=== PATIENT | female | born 1960 | race Caucasian/White ===

== ENCOUNTER 2016-04-26 09:20 | Observation (INO) | payer MEDICARE ==
[2016-04-26] MEDS ORDERED: NS 1,000 ML IV ONE (09:34)
[2016-04-26] MEDS ORDERED: ONDANSETRON HCL 4 MG/2 ML VIAL IV ONE (09:49)
[2016-04-26 10:03] LABS: AUTOMATED EOSINOPHIL 5.3 % (0-5); AUTOMATED LYMPH 34.1 % (17-44); AUTOMATED MONOCYTE 11.2 % (3-10); AUTOMATED NEUTROPHIL 48.4 % (45-76); MPV 8.3 fL (7.4-10.4)
[2016-04-26 10:16] LABS: BLOOD UREA NITROGEN 9 MG/DL (7-17); CALCIUM 8.9 MG/DL (8.4-10.2); CALCULATED OSMOLALITY 266 MOs/Kg (270-290); CHLORIDE 92 mEq/L (98-107); GLUCOSE 70 MG/DL (70-99); PARTIAL THROMB. TIME 23.1 SEC (22-35); SODIUM LEVEL 140 mEq/L (137-146); TOTAL PROTEIN 6.8 G/DL (6.3-8.2)
--- NOTE | 2016-04-26 10:53 | EDPRACDOC ---
- General Chief Complaint: Generalized Weakness Stated Complaint: CHEST PAIN, LT SIDE NUMBNESS Time Seen by Provider: 04/26/16 09:30 Information Source: Patient Mode of Arrival:: Car Allergies/Adverse Reactions: Allergies Allergy/AdvReac Type Severity Reaction Status Date / Time codeine Allergy Hives* Verified 04/26/16 10:30 hydrocodone Allergy Hives* Verified 04/26/16 10:30 Penicillins Allergy See Verified 04/26/16 10:30 Comments piperacillin sodium Allergy Hives* Verified 04/26/16 10:30 [From Zosyn] tazobactam sodium Allergy Hives* Verified 04/26/16 10:30 [From Zosyn] ANTIBIOTIC STARTS WITH V Allergy See Uncoded 04/26/16 10:30 Comments Home Medications: Ambulatory Orders Alprazolam 1 mg PO TID 01/28/13 Carisoprodol [Soma] 350 mg PO QID 01/28/13 Furosemide [Lasix] 40 mg PO DAILY 01/28/13 Gabapentin 800 mg PO QID 01/28/13 Levothyroxine [Synthroid, Levoxyl] 75 mcg PO DAILY 01/28/13 Sertraline HCl [Zoloft] 100 mg PO DAILY 01/28/13 Bupropion HCl [Wellbutrin Xl] 300 mg PO DAILY 02/02/16 Omeprazole [Prilosec] 40 mg PO DAILY 02/02/16 Famotidine [Pepcid] 20 mg PO HS PRN 02/03/16 PEG-Electrolytes (Miralax) [Miralax] 17 gm PO .EVERY OTHER DAY 02/03/16 Atorvastatin Calcium [Lipitor] 20 mg PO HS 03/23/16 Meloxicam 15 mg PO DAILY 03/23/16 Cyanocobalamin (Vitamin B-12) [Vitamin B-12 (cyanocobalamin)] 1,000 mcg SL DAILY 04/26/16 Ergocalciferol (Vitamin D2) [Vitamin D] 400 unit PO DAILY 04/26/16 - History of Present Illness Exact Onset of Symptoms: Known Onset: 1 week Symptoms Started: Reports: Suddenly Symptoms: Reports: Difficulty walking, Slurred speech, Other trouble talking Symptoms Description: Constant Symptom Severity: Reports: Unable to performs ADL's Weakness: Left: Leg Other History: PT SAID THAT SHE'S NOTICED SOME LEFT LEG WEAKNESS FOR THE PAST WEEK. SHE HAS HAD DIFFICULTY SPEAKING WELL. THE PT SAID THAT SHE FINALLY WENT TO SEE HER DR TODAY WHO TOLD HER TO COME TO THE ED. THE PT SAID THAT SHE'S BEEN TRIPPING AND FALLING DUE TO THE LEFT LEG WEAKNESS AND THAT THE WEAKNESS IS GETTING WORSE. PT DID TAKE A 325 MG ASA THIS ED Past Medical History - Patient Medical History Respiratory History: Reports: Pneumonia GI/ History: Reports: Gastroesophageal Reflux, Diverticulosis Musculoskeletal History: Reports: Rheumatoid Arthritis Psychological History: Reports: Depression, Anxiety (SEVERE) Systemic History: Reports: Hypothyroidism. Denies: Cancer Surgical History: Reports: Hysterectomy, Tonsillectomy/Adnoidectomy, Other ( LEFT KNEE) - Family Medical History Reports: Cancer (sisters - breast ca), Cardiac Disorders (mother [place], brother, sisters). Denies: Hypertension, Diabetes, Stroke - Social Medical History Smoking Status: Former smoker ETOH: None Substance Abuse: None Lives In: Home EDM Review of Systems - Review of Systems ROS Negative Except as Marked: Yes All systems reviewed and were negative except as marked Neurological: Gait Difficulty, Speech Difficulty - Physical Exam Constitutional: Alert (Awake), No apparent distress Oriented to: Time, Person, Place Last recorded Vital Signs: Last Vital Signs Temp 98.6 F 04/26/16 09:25 Pulse 71 04/26/16 10:22 Resp 18 04/26/16 10:22 BP 117/62 04/26/16 10:22 Pulse Ox 94 04/26/16 10:22 Oxygen Pulse Oxygen Saturation 94 O2 Device Oxygen Flow Rate Fraction of Inspired Oxygen ( FIO2) - HEENT Head: Normal ( normocephalic) Eye Exam: Normal (PERRL, EOMI, Sclera white) Oropharynx: Normal (Pharynx:Moist without exudate,Gums-no swelling) ENT EAC: Normal TMJ: Normal Nose: No Symptoms Reported (septum midline) Neck: Normal (FROM, trachea at midline) - Respiratory/Cardiovascular Respiratory: Normal - CTA (BBS clear to auscultation without adventitious sounds ) Cardiovascular: Normal (RRR without murmur, gallop or rub) - GI Auscultation: Normal (NABS) Palpation: Normal (Soft,No rebound or guarding, non distended) Tenderness: Non tender Nicole's Sign: Negative - Musculoskeletal Back: Normal (Non-Tender) Extremities: Normal (Normal tone, Pulses 2+ No cyanosis or edema, FROM) - Integumentary Skin: Normal, Warm, Dry Lymphatics: Normal (no adenopathy) - Neurologic Memory Impaired: Normal Motor Function: Abnormal, Other (LEFT LEG WEAKNESS) Cranial Nerve: Normal (CN II-X11 intact sensation, strength 5/5) Cerebellar: Normal Mood Description: Normal Perception: Normal - Results 04/26/16 09:45 04/26/16 09:45 WBC 3.1 xk/uL (3.8-10.8) L 04/26/16 09:45 RBC 4.37 xM/uL (4.20-5.40) 04/26/16 09:45 Hgb 13.8 g/dL (12.0-16.0) 04/26/16 09:45 Hct 40.7 % (36-47) 04/26/16 09:45 MCV 93 fL (81-99) 04/26/16 09:45 MCH 31.6 pg (27-32) 04/26/16 09:45 MCHC 33.8 g/dl (33-36) 04/26/16 09:45 RDW 13.3 % (11.5-14.5) 04/26/16 09:45 Plt Count 187 xk/uL (130-400) 04/26/16 09:45 MPV 8.3 fL (7.4-10.4) 04/26/16 09:45 Neut % (Auto) 48.4 % (45-76) 04/26/16 09:45 Lymph % (Auto) 34.1 % (17-44) 04/26/16 09:45 Polk % (Auto) 11.2 % (3-10) H 04/26/16 09:45 Eos % (Auto) 5.3 % (0-5) H 04/26/16 09:45 Baso % (Auto) 1.0 % (0-2) 04/26/16 09:45 Absolute Neuts (auto) 1.49 xk/uL (1.7-8.2) L 04/26/16 09:45 Absolute Lymphs (auto) 1.05 xk/uL (0.65-4.75) 04/26/16 09:45 PT 10.0 SEC (9.2-11.2) 04/26/16 09:45 INR 1.0 04/26/16 09:45 APTT 23.1 SEC (22-35) 04/26/16 09:45 Sodium 140 mEq/L (137-146) 04/26/16 09:45 Potassium 3.2 mEq/L (3.5-5.1) L 04/26/16 09:45 Chloride 92 mEq/L (98-107) L 04/26/16 09:45 Carbon Dioxide 38 mMOL/L (22-33) H 04/26/16 09:45 Anion Gap 13 mEq/L (8-16) 04/26/16 09:45 BUN 9 MG/DL (7-17) 04/26/16 09:45 Creatinine 0.90 MG/DL (0.52-1.04) 04/26/16 09:45 Estimated GFR (MDRD) > 60 mL/min (>=60) 04/26/16 09:45 Glucose 70 MG/DL (70-99) 04/26/16 09:45 Calculated Osmolality 266 MOs/Kg (270-290) L 04/26/16 09:45 Calcium 8.9 MG/DL (8.4-10.2) 04/26/16 09:45 Corrected Calcium 9.0 MG/DL (8.4-10.2) 04/26/16 09:45 Total Bilirubin 0.5 MG/DL (0.2-1.3) 04/26/16 09:45 AST 33 IU/L (14-36) 04/26/16 09:45 ALT 31 IU/L (9-52) 04/26/16 09:45 Alkaline Phosphatase 107 IU/L (38-126) 04/26/16 09:45 Troponin I < 0.01 ng/mL (<.04) 04/26/16 09:45 Total Protein 6.8 G/DL (6.3-8.2) 04/26/16 09:45 Albumin 3.9 G/DL (3.5-5.0) 04/26/16 09:45 Lab Results 04/26/16 04/26/16 04/26/16 09:45 09:45 09:45 WBC 3.1 L RBC 4.37 Hgb 13.8 Hct 40.7 MCV 93 MCH 31.6 MCHC 33.8 RDW 13.3 Plt Count 187 MPV 8.3 Neut % (Auto) 48.4 Lymph % (Auto) 34.1 Polk % (Auto) 11.2 H Eos % (Auto) 5.3 H Baso % (Auto) 1.0 Absolute Neuts (auto) 1.49 L Absolute Lymphs (auto) 1.05 PT 10.0 INR 1.0 APTT 23.1 Sodium 140 Potassium 3.2 L Chloride 92 L Carbon Dioxide 38 H Anion Gap 13 BUN 9 Creatinine 0.90 Estimated GFR (MDRD) > 60 Glucose 70 Calculated Osmolality 266 L Calcium 8.9 Corrected Calcium 9.0 Total Bilirubin 0.5 AST 33 ALT 31 Alkaline Phosphatase 107 Troponin I < 0.01 Total Protein 6.8 Albumin 3.9 - EKG EKG #1 EKG Time: 09:33 -: Yes EKG interpreted by me Rate: bpm: 77 Caldwell: Normal Rhythm: NSR Block: None Hypertrophy: None ST: Normal Comparison: 03/27/16 - Diagnostic Imaging Chest Image interpreted by: Radiologist - Departure Yes I personally saw and evaluated the patient. Condition: Fair Final Diagnosis: CVA (cerebral vascular accident) Instructions: Weakness (General) Education/Counseling Given To: Patient Education/Counseling Given Regarding: Diagnosis, Treatment Referrals: Sonali Senior MD [Primary Care Provider] - One Week Decision to Admit Time: 13:10 Decision to admit date: 04/26/16 Decision to admit: from ED - Physician Consulted Hospitalist Provider Called: Karli Payan
[2016-04-26] MEDS ORDERED: PROMETHAZINE 25 MG/ML VIAL IV ONE (11:15)
[2016-04-26] MEDS ORDERED: PROMETHAZINE 25 MG/ML VIAL ONE (11:17)
[2016-04-26 12:06] LABS: AMORPHOUS OCC; RBC/URINE 0-2 (0-5); WBC/URINE 0-2 (0-5)
[2016-04-26 12:07] LABS: LEUKOCYTES/URINE NEG (NEGATIVE); NITRITE/URINE NEG (NEGATIVE); URINE OCCULT BLOOD NEG (NEG/TRACE)
[2016-04-26 12:18] LABS: FREE T3 4.87 pg/mL (2.77-5.27); FREE T4 1.32 ng/dL (0.78-2.19)
[2016-04-26 12:32] LABS: hTSH 2.7 uIU/mL (0.5-4.67)
[2016-04-26] MEDS ORDERED: ONDANSETRON HCL 4 MG/2 ML VIAL IV PRN (14:14)
--- NOTE | 2016-04-26 14:14 | DIRPT ---
CLINICAL DATA: CVA. Nausea with left-sided numbness today. EXAM: PORTABLE CHEST 1 VIEW COMPARISON: Radiographs 10/25/2011. CT 01/28/2012. FINDINGS: 1014 hours. There are lower lung volumes with poor definition of the pulmonary vasculature and patchy gjmy-fvctumk-yfck-right lower lobe airspace opacities. There is no significant pleural effusion or pneumothorax. The heart size and mediastinal contours are stable. The bones appear unremarkable. IMPRESSION: Patchy uqyn-snsqqsc-vesa-right lower lobe opacities are associated with lower lung volumes and may reflect atelectasis, although are worrisome for possible aspiration. Radiographic follow up recommended. Electronically Signed By: Yannick Lou M.D. On: 04/26/2016 14:11
--- NOTE | 2016-04-26 14:14 | DIRPT ---
CLINICAL DATA: Left-sided weakness. Left-sided weakness for 1 week. EXAM: CT HEAD WITHOUT CONTRAST TECHNIQUE: Contiguous axial images were obtained from the base of the skull through the vertex without intravenous contrast. COMPARISON: Head CT dated 12/21/2009. FINDINGS: There is mild generalized brain atrophy with commensurate dilatation of the ventricles and sulci. Ventricles are stable in size and configuration. There is no mass, hemorrhage, edema or other evidence of acute parenchymal abnormality. No extra-axial hemorrhage. No osseous abnormality. Visualized upper paranasal sinuses are clear. Mastoid air cells are clear. Superficial soft tissues are unremarkable. IMPRESSION: No evidence of acute intracranial abnormality. No intracranial mass, hemorrhage or edema. Electronically Signed By: Sarbjit Peña M.D. On: 04/26/2016 14:11
--- NOTE | 2016-04-26 14:20 | HISTPHYS ---
- Chief Complaint Slurred speech, left leg weakness - History of Present Illness This is a 55-year-old female who was sent to the emergency department this morning from her primary care physician's office, where she went complaining of 1 week of left leg weakness resulting in stumbling. Here in the emergency department, she was found to have significant left-sided lower extremity weakness, and slurred speech. Upon my examination of the patient, she is quite sleepy and her speech is certainly slurred although she did recently get a dose of Phenergan so this could be confounding things. Patient tells me that she 1st noticed weakness in her left leg about a week ago, when she was stumbling and had trouble lifting the leg entirely when she was walking. She does not think that she has any upper extremity weakness, she says that her speech is not some completely normal, part of the problem was that she wears dentures and they are loose. She denies any chest pain, fevers, chills, nausea, vomiting, weight gain or loss, changes in bowel habits, rashes on the skin or sick contacts. - Medical History Respiratory History: Reports: Pneumonia GI/ History: Reports: Gastroesophageal Reflux, Diverticulosis Musculoskeletal History: Reports: Rheumatoid Arthritis Systemic History: Reports: Hypothyroidism. Denies: Cancer Psychological History: Reports: Depression, Anxiety (SEVERE) - Surgical History Reports: Hysterectomy, Tonsillectomy/Adnoidectomy, Other (LEFT KNEE) - Medictions/Allergies Allergies codeine Allergy (Verified 04/26/16 10:30) Hives* MAKES ME FEEL WEIRD hydrocodone Allergy (Verified 04/26/16 10:30) Hives* Penicillins Allergy (Verified 04/26/16 10:30) See Comments PER MD OFFICE RECORD, PT UNSURE piperacillin sodium [From Zosyn] Allergy (Verified 04/26/16 10:30) Hives* PER MD OFFICE RECORDS, PT UNSURE OF NAME OF ANTIBIOTIC tazobactam sodium [From Zosyn] Allergy (Verified 04/26/16 10:30) Hives* PER MD OFFICE RECORDS, PT UNSURE OF NAME OF ANTIBIOTIC ANTIBIOTIC STARTS WITH V Allergy (Uncoded 04/26/16 10:30) See Comments FELT LIKE BEES STINGING ME ALL OVER Home Medications Alprazolam 1 mg PO TID 01/28/13 Carisoprodol [Soma] 350 mg PO QID 01/28/13 Furosemide [Lasix] 40 mg PO DAILY 01/28/13 Gabapentin 800 mg PO QID 01/28/13 Levothyroxine [Synthroid, Levoxyl] 75 mcg PO DAILY 01/28/13 Sertraline HCl [Zoloft] 100 mg PO DAILY 01/28/13 Bupropion HCl [Wellbutrin Xl] 300 mg PO DAILY 02/02/16 Omeprazole [Prilosec] 40 mg PO DAILY 02/02/16 Famotidine [Pepcid] 20 mg PO HS PRN 02/03/16 PEG-Electrolytes (Miralax) [Miralax] 17 gm PO .EVERY OTHER DAY 02/03/16 Atorvastatin Calcium [Lipitor] 20 mg PO HS 03/23/16 Meloxicam 15 mg PO DAILY 03/23/16 Cyanocobalamin (Vitamin B-12) [Vitamin B-12 (cyanocobalamin)] 1,000 mcg SL DAILY 04/26/16 Ergocalciferol (Vitamin D2) [Vitamin D] 400 unit PO DAILY 04/26/16 - Family History Reports: Cancer (sisters - breast ca), Cardiac Disorders (mother [place], brother, sisters). Denies: Hypertension, Diabetes, Stroke - Social History Smoking Status: Former smoker - Review of Systems Yes All systems reviewed and were negative except as marked (And as mentioned in the history of present illness above.) - Physical Exam Vital Signs: Initial Vitals Temperature 98.6 F 04/26/16 09:25 Pulse Rate 74 04/26/16 09:25 Respiratory Rate 18 04/26/16 09:25 Blood Pressure 109/57 L 04/26/16 09:25 Pulse Oxygen Saturation 95 04/26/16 09:25 Constitutional: Somnolent Oriented to: Time, Person, Place Exam: Answer questions appropriately, but sort of sleepy appearing. Slow to follow commands. Speech is very slurred, but visibly disturbed by loose dentures. Respiratory: Normal - CTA (Clear to auscultation bilaterally, no wheezing,rales or rhonchi. No use of accessory muscles) Cardiovascular: Normal (RRR, no murmurs, rubs or gallops) - GI Palpation: Normal (soft, non distended and nontender) - Musculoskeletal Extremities: Normal (normal tone, no cyanosis or edema) - Neurologic Memory Impaired: Normal Motor Function: Abnormal (She has obvious weakness left lower extremity hip flexion. As well as left knee extension.) Cerebellar: Normal Thought: Coherent - Focused CV Perfusion Exam Vital Signs: Last Vital Signs Temp 98.6 F 04/26/16 09:25 Pulse 67 04/26/16 14:06 Resp 18 04/26/16 14:06 BP 101/54 L 04/26/16 14:06 Pulse Ox 96 04/26/16 14:06 - Lab Results Laboratory Tests 04/26/16 04/26/16 04/26/16 09:45 09:45 09:45 WBC 3.1 L Hgb 13.8 Hct 40.7 INR 1.0 Sodium 140 Potassium 3.2 L BUN 9 Creatinine 0.90 Troponin I < 0.01 04/26/16 12:27 WBC Hgb Hct INR Sodium Potassium BUN Creatinine Troponin I < 0.01 - Diagnostic Findings She had a chest x-ray which shows some left greater than right lower lobe opacity which may represent atelectasis over pneumonitis. She also had a noncontrast head CT in the emergency department which is not show any acute abnormality. - Assessment (1) CVA (cerebral vascular accident) I63.9 - CEREBRAL INFARCTION, UNSPECIFIED Acute Qualifiers: CVA mechanism: C Precerebral and cerebral artery: P Laterality of affected vessel: L This patient is being admitted to the hospital due to 1 week of stroke-like symptoms, consisting of left lower extremity weakness, she also has slurred speech of unclear duration. Initial head CT is unremarkable, however the patient will be admitted to the hospital for further workup and evaluation of her potential stroke. No tPA was administered due to being far outside of the time window. Admit to medical floor with telemetry, NPO until speech therapy evaluation. She will also be seen by physical and occupational therapy services. She will have MRI of the brain, as well as carotid Doppler ultrasound and 2D echocardiography with Doppler. Will also check fasting lipids. Patient has taken aspirin at home this morning, she will be started on a daily aspirin and her home statin will be continued, will check her fasting LDL in the morning. Will allow for permissive hypertension in the 1st 24 hours , though her symptoms have been going on a bit longer. Notably, she also is relatively hypotensive at this time. (2) Left-sided weakness M62.81 - MUSCLE WEAKNESS (GENERALIZED) Acute Due to likely CVA. (3) Abnormal chest x-ray R93.8 - ABNORMAL FINDINGS ON DIAGNOSTIC IMAGING OF BODY STRUCTURES Acute Chest x-ray with appearance of left greater than right atelectasis versus pneumonia. She has had no fevers or chills, no cough and no significant hypoxia. As such, I feel this is likely atelectasis rather than pneumonia. Will keep a close eye on the patient, she becomes febrile or significantly short of breath could consider treatment for pneumonia. (4) Hyperlipidemia E78.5 - HYPERLIPIDEMIA, UNSPECIFIED Acute Qualifiers: Hyperlipidemia type: H Continue home atorvastatin, check fasting lipids in the morning. (5) Chronic pain G89.29 - OTHER CHRONIC PAIN Acute Qualifiers: Chronic pain type: C Continue home gabapentin. - Plan In summary this patient is acutely and critically ill. The patient requires treatment of vital organ failure and measures to prevent further life- threatening deterioration of the above conditions. I personally reviewed and ordered lab testing, as well as imaging. I reviewed old medical records from previous hospitalizations as available, and spent the time mentioned below in critical care of this patient including counseling and coordination of care. Total Time: 85 Critical Care: No Couseling Time (>50% in counseling/coordination): No
--- NOTE | 2016-04-26 15:42 | DIRPT ---
CLINICAL DATA: Left-sided weakness. Unsteady gait for 1 week. EXAM: MRI HEAD WITHOUT AND WITH CONTRAST TECHNIQUE: Multiplanar, multiecho pulse sequences of the brain and surrounding structures were obtained without and with intravenous contrast. CONTRAST: 17 mL MultiHance COMPARISON: CT head without contrast 04/26/2016. FINDINGS: 3 or 4 scattered subcortical T2 hyperintensities are within normal limits for age. No acute infarct, hemorrhage, or mass lesion is present. The ventricles are of normal size. No significant extraaxial fluid collection is present. The internal auditory canals are within normal limits. Brainstem and cerebellum are normal. Flow is present in the major intracranial arteries. The globes and orbits are intact. Mild mucosal thickening is present along the inferior maxillary sinuses bilaterally. There is a polyp or mucous retention cyst on the right. The paranasal sinuses and mastoid air cells are clear. The postcontrast images demonstrate a focal area of linear enhancement within the left parietal lobe near the sylvian fissure. 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 No other pathologic enhancement is present. IMPRESSION: 1. Normal MRI of the brain for age. 2. Minimal maxillary sinus disease. Electronically Signed By: Antoine Olivia M.D. On: 04/26/2016 15:39
--- NOTE | 2016-04-26 17:21 | CAPUECHO ---
INDICATION: ISCHEMIIC STOKE--EVAL FORAMEN HEIGHT: 165.1 cm (5 ft 5.0 in) WEIGHT: 83.9 kg (185.0 lbs) BP: 101/54 BSA: 1.411905 m MEASUREMENTS 2D RVIDd: 3.0 cm LVOT Diam: 2.1 cm EF Biplane: 68.83 % LAESV MOD A4C: 55.0 ml LAESV MOD A2C: 63.4 ml LAESV Index (A-L): 33.10 ml/m M-MODE IVSd: 1.0 cm LVIDd: 4.9 cm LVPWd: 0.9 cm LVIDs: 3.1 cm EF(Teich): 66 % Ao Diam: 3.3 cm LA Diam: 3.4 cm DOPPLER MV E Baudilio: 0.92 m/s MV A Baudilio: 0.71 m/s MV PHT: 55.90 ms MVA By PHT: 3.94 cm LVOT Vmax: 0.82 m/s AV Vmax: 1.11 m/s ANNABELLE Vmax, Pt: 2.45 cm TR Vmax: 1.99 m/s TR maxP mmHg RVSP: 26.81 mmHg FINDINGS ------- Procedure:2D images, m-mode, color and spectral Doppler were obtained and reviewed. ECG rhythm:Sinus rhythm. Study quality:This was a technically adequate study. Left Ventricle:LV size, wall thickness and systolic function are normal, with an EF greater than 55% . The diastolic filling pattern is normal for the age of the patient. No regional wall motion ab normalities were noted. Right Ventricle:The right ventricle is mildly enlarged. The right ventricular wall thickness is no rmal measuring < 5mm. The right ventricular systolic function is normal. Left Atrium:The left atrium is normal in size. Right Atrium:The right atrium is normal in size and function. ASD/VSD:No evidence of interatrial communication by color flow doppler analysis. Interatrial and i nterventricular septum intact. Aortic Valve:The aortic valve is trileaflet and appears structurally normal. Trace amount of aorti c regurgitation. There is no evidence of aortic stenosis. Mitral Valve:Normal appearing mitral valve. There is trace to mild mitral regurgitation. Tricuspid Valve:The tricuspid valve appears structurally normal. Trace tricuspid regurgitation pre sent. The right ventricular systolic pressure, as measured by Doppler, is 27mmHg. Pulmonic Valve:The pulmonic valve is normal. Trace/mild (physiologic) pulmonic regurgitation. Aorta:The aortic root, ascending aorta and aortic arch appear normal. IVC:Normal inferior vena cava with normal inspiratory collapse. Pulmonary Veins:The flow patterns, measured by Doppler, appear normal. Pericardium:The pericardium is normal. There is no pericardial effusion. CONCLUSIONS 1. Sinus rhythm. 2. LV size, wall thickness and systolic function are normal, with an EF greater than 55%. 3. No evidence of interatrial communication by color flow doppler analysis. 4. Interatrial and interventricular septum intact. Electronically Signed By: Jacinto Norman MD, [facility] Electronically Signed On: 17:21:17
[2016-04-26] MEDS: CARISOPRODOL 350 MG TAB PO SCH ×2 (17:29→21:24)
[2016-04-26] MEDS: GABAPENTIN 800 MG TAB PO SCH ×2 (17:32→21:25)
[2016-04-26] MEDS ORDERED: ENOXAPARIN 40 MG/0.4 ML PFS SQ SCH (18:00)
[2016-04-26] MEDS ORDERED: Vaccine Screening Complete SCH (20:00)
[2016-04-26] MEDS ORDERED: ATORVASTATIN 20 MG TAB PO SCH (21:00)
[2016-04-26] MEDS ORDERED: IBUPROFEN 600 MG TAB PO PRN (23:56)
[2016-04-26] MEDS ORDERED: ACETAMINOPHEN 325 MG/TAB TABLET PO PRN (23:56)
[2016-04-27 04:48] VITALS: BMI 31.5
[2016-04-27] MEDS ORDERED: PANTOPRAZOLE 40 MG TAB PO SCH (06:00)
[2016-04-27 06:57] LABS: BLOOD UREA NITROGEN 6 MG/DL (7-17); CALCIUM 9.1 MG/DL (8.4-10.2); CALCULATED OSMOLALITY 272 MOs/Kg (270-290); CHLORIDE 101 mEq/L (98-107); GLUCOSE 78 MG/DL (70-99); SODIUM LEVEL 143 mEq/L (137-146)
[2016-04-27] MEDS ORDERED: ALPRAZOLAM 0.5 MG TAB PO SCH (08:00)
[2016-04-27] MEDS ORDERED: MELOXICAM 7.5 MG TAB PO SCH (08:00)
--- NOTE | 2016-04-27 08:01 | DIRPT ---
CLINICAL DATA: Left-sided weakness EXAM: BILATERAL CAROTID DUPLEX ULTRASOUND TECHNIQUE: Jensen scale imaging, color Doppler and duplex ultrasound were performed of bilateral carotid and vertebral arteries in the neck. COMPARISON: None. FINDINGS: Criteria: Quantification of carotid stenosis is based on velocity parameters that correlate the residual internal carotid diameter with NASCET-based stenosis levels, using the diameter of the distal internal carotid lumen as the denominator for stenosis measurement. The following velocity measurements were obtained: RIGHT ICA: 74 cm/sec CCA: 83 cm/sec SYSTOLIC ICA/CCA RATIO: 0.9 DIASTOLIC ICA/CCA RATIO: 1.4 ECA: 45 cm/sec LEFT ICA: 67 cm/sec CCA: 80 cm/sec SYSTOLIC ICA/CCA RATIO: 0.8 DIASTOLIC ICA/CCA RATIO: 1.4 ECA: 66 cm/sec RIGHT CAROTID ARTERY: Little if any plaque in the bulb. Low resistance internal carotid Doppler pattern. RIGHT VERTEBRAL ARTERY: Antegrade. Normal Doppler pattern. LEFT CAROTID ARTERY: Little if any plaque in the bulb. Low resistance internal carotid Doppler pattern. LEFT VERTEBRAL ARTERY: Antegrade. Normal Doppler pattern. IMPRESSION: Less than 50% stenosis in the right and left internal carotid arteries. Electronically Signed By: Artemio Coombs M.D. On: 04/27/2016 07:58
[2016-04-27] MEDS: CARISOPRODOL 350 MG TAB PO SCH ×2 (08:16→12:36)
--- NOTE | 2016-04-27 08:16 | PCM.DCS92 ---
- Final/Secondary Discharge Diagnosis (1) CVA (cerebral vascular accident) Acute I63.9 - CEREBRAL INFARCTION, UNSPECIFIED C P L Comment: This 55-year-old female with a history of anxiety on several medications for this was admitted to the hospital due to 1 week of stroke-like symptoms, consisting of left lower extremity weakness and slurred speech of unclear duration. Infiltrate CT in the emergency department was negative, however the patient was admitted to the hospital for further workup and evaluation of potential stroke. TPA was not given due to being far outside the time window. She was admitted to the medical floor, with telemetry and kept NPO until speech therapy evaluation. She had MRI of the brain, carotid Dopplers and echocardiography drawn will unremarkable for any acute process or evidence of CVA. Fasting lipids were checked, and they are at goal. She will be evaluated by Physical therapy and Occupational therapy this morning, and if deemed safe she will be discharged home later this morning independently. Note that she was also seen by speech therapy, who cleared her for a diet after noting no dysphagia. (2) Left-sided weakness Acute M62.81 - MUSCLE WEAKNESS (GENERALIZED) Comment: This is felt likely to be related to CVA, it will now be classified as a TIA. (3) Abnormal chest x-ray Acute R93.8 - ABNORMAL FINDINGS ON DIAGNOSTIC IMAGING OF BODY STRUCTURES Comment: Chest x-ray with appearance of left greater than right atelectasis versus pneumonia. She has had no fevers or chills, no cough and no significant hypoxia. As such, I feel this is likely atelectasis rather than pneumonia. Will keep a close eye on the patient, she becomes febrile or significantly short of breath could consider treatment for pneumonia. (4) Hyperlipidemia Acute E78.5 - HYPERLIPIDEMIA, UNSPECIFIED H Comment: Continue home atorvastatin, fasting lipids were checked and are at goal. (5) Chronic pain Acute G89.29 - OTHER CHRONIC PAIN C Comment: Continue home gabapentin. Discharge Disposition: Home Discharge Condition: Fair Cognitive Discharge Status: Unimpaired Fuctional Discharge Status: Independent Physician Follow up/Referrals: Sonali Senior MD [Primary Care Provider] - One Week Home Medications / New Prescriptions: New Aspirin (Enteric Coated) [Halfprin] 81 mg PO DAILYWM #30 tablet Continue Sertraline HCl [Zoloft] 100 mg PO DAILY Levothyroxine [Synthroid, Levoxyl] 75 mcg PO DAILY Gabapentin 800 mg PO QID Furosemide [Lasix] 40 mg PO DAILY Carisoprodol [Soma] 350 mg PO QID Alprazolam 1 mg PO TID Bupropion HCl [Wellbutrin Xl] 300 mg PO DAILY Omeprazole [Prilosec] 40 mg PO DAILY PEG-Electrolytes (Miralax) [Miralax] 17 gm PO .EVERY OTHER DAY Famotidine [Pepcid] 20 mg PO HS PRN PRN Reason: Acid Reflux Meloxicam 15 mg PO DAILY Atorvastatin Calcium [Lipitor] 20 mg PO HS Ergocalciferol (Vitamin D2) [Vitamin D] 400 unit PO DAILY Cyanocobalamin (Vitamin B-12) [Vitamin B-12 (cyanocobalamin)] 1,000 mcg SL DAILY O2 Device: Nasal Cannula Diet at Discharge: Regular Activity: No Restrictions Call Office For: Worsening Symptoms - DC Summary Notes HPI/Notes: This 55-year-old female was admitted to the hospital with left-sided weakness and concern for slurred speech, for CVA workup. Imaging including MRI of the brain, CT of the head, echocardiography and carotid Dopplers were unremarkable and on diagnostic for CVA. She has been diagnosed with a TIA. Note that she is also on several potentially sedating medications for her chronic pain and anxiety. Some of these medications were held at the time of admission to the hospital, and she has been much more alert with normal mental status since his medications were held. At the same time, she also has severe anxiety this morning since she did not get her usual Xanax that she takes 3 times a day. As such, I have not made any specific medication changes to her regimen this morning, but did recommend strongly to the patient that she follow up with her primary care provider to review the necessity of her multiple sedating medications. Please see the hospital problems and discharge problems above for details of the hospital course including diagnostics and treatment. The plan of care including medications, prognosis, follow-up including alarm symptoms for which medical care should be sought were reviewed with the patient and any available family members/caretakers. The patient is agreeable to discharge today, and all questions were answered by me to their satisfaction. Hospital Course Note:: Discharge summary on patient named JIMMY DAWSON admitted to [facility] on 04/26/16 by Jose Ramsay MD. Date of discharge is []. Total Time: 41 - Physical Exam Vital Signs: Last Vital Signs Temp 97.8 F 04/27/16 04:48 Pulse 67 04/27/16 06:00 Resp 18 04/27/16 04:48 BP 100/54 L 04/27/16 04:48 Pulse Ox 95 04/27/16 04:48 Oxygen Pulse Oxygen Saturation 95 O2 Device Nasal Cannula Oxygen Flow Rate 2 Fraction of Inspired Oxygen ( FIO2) Constitutional: No apparent distress, Alert Oriented to: Time, Person, Place - HEENT Head: Normal ( normocephalic) Eye: Normal (PERRL, EOMI, Sclera white) Oropharynx: Normal (Pharynx:Moist without exudate,Gums-no swelling) ENT EAC: Normal TMJ: Normal Nose: No Symptoms Reported (septum midline) - Respiratory/Cardiovascular Respiratory: Normal - CTA (Clear to auscultation bilaterally, no wheezing,rales or rhonchi. No use of accessory muscles) Cardiovascular: Normal (RRR, no murmurs, rubs or gallops) - GI Palpation: Normal (soft, non distended and nontender) - Musculoskeletal Extremities: Normal (normal tone, no cyanosis or edema) - Integumentary Skin: Normal, Warm, Dry Lymphatics: Normal (no adenopathy) - Neurologic Memory Impaired: Normal Cerebellar: Normal Thought: Coherent
[2016-04-27 08:23] VITALS: BP 99/70; PULSE 70; TEMP 98
[2016-04-27] MEDS ORDERED: SERTRALINE HCL 100 MG TAB PO SCH (09:00)
[2016-04-27] MEDS ORDERED: BuPROPion 150 MG XL TAB PO SCH (09:00)
[2016-04-27] MEDS ORDERED: Non-Formulary Medication ITEM (Omeprazole 40 MG) PO SCH (09:00)
[2016-04-27] MEDS ORDERED: LEVOTHYROXINE 75 MCG (0.075 MG) TAB PO SCH (09:00)
[2016-04-27] MEDS ORDERED: Non-Formulary Medication ITEM (Meloxicam [Meloxicam] 15 MG) PO SCH (09:00)
[2016-04-27] MEDS ORDERED: BUPROPION HCL 300 MG PO SCH (09:00)
[2016-04-27] MEDS ORDERED: PEG-ELECTROLYTE 17 GM PACK PO SCH (09:00)
[2016-04-27] MEDS: GABAPENTIN 800 MG TAB PO SCH ×2 (09:49→12:36)
[2016-04-30 16:37] LABS: DILUTE RUSSELL'S VIPER VENOM 36.6 sec (0.0-44.0)
[2016-05-01 07:50] LABS: INTERPRETATION Comment: (.); PROTEIN S(FUNCTIONAL) 82 % (63-140)
== END 2016-04-27 12:55 | disposition home or self-care (01) ==
LOC: ED 09:20 → PCU 14:16 → INTOOBSV 14:16
PROVIDERS: ADMIT Internal Medicine; ATTEND Internal Medicine
DX: G45.9 Transient cerebral ischemic attack, unspecified (principal); M62.81 Muscle weakness (generalized); R93.8 Abnormal findings on diagnostic imaging of other specified body structures; E78.5 Hyperlipidemia, unspecified; G89.29 Other chronic pain; F41.9 Anxiety disorder, unspecified; R26.2 Difficulty in walking, not elsewhere classified; K21.9 Gastro-esophageal reflux disease without esophagitis; E03.9 Hypothyroidism, unspecified; M06.9 Rheumatoid arthritis, unspecified; Z79.899 Other long term (current) drug therapy
CPT/HCPCS: 36415; 70450; 70553; 71010; 80048; 80053; 80061; 81001; 84439; 84443; 84481; 84484; 85025; 85027; 85303; 85306; 85610; 85613; 85651; 85730; 85732; 92610; 93005; 93880; 96361; 96372; 96374; 96375; 97162; 97165; 99285; A9270; A9577; C8929; G0378; G8978; G8979; G8980; G8987; G8988; G8989; G8996; G8997; J1650; J2405; J2550; 93306; J3490